=== PATIENT | female | born 1965 | race Caucasian/White ===

== ENCOUNTER 2017-04-15 11:25 | Outpatient (CLI) | payer OTHER | END 2017-04-15 11:26 | disposition home or self-care (01) | LOC: LAB.R 11:25 | PROVIDERS: ATTEND Family Medicine | DX: R31.0 Gross hematuria (principal) | CPT/HCPCS: 87086 ==

== ENCOUNTER 2019-05-26 15:04 | Emergency (ER) | payer OTHER ==
--- NOTE | 2019-05-26 15:49 | ED Physician Documentation ---
PD HPI URI - Stated complaint Stated Complaint: FEVER/N - Chief complaint Chief Complaint: Fever - History obtained from History obtained from: Patient - History of Present Illness Timing - onset: How many days ago (3) Timing duration: Days (3) Timing details: Abrupt onset, Still present, Waxing and waning (He has had nausea with fevers for the last 3 days. She has had some headache when the fevers are higher but that improves with Tylenol. She does feel dehydrated with less oral intake over the last 3 days. She has had soft stool output with some notice of dark color to it yesterday but not as much today. She did not have profuse diarrhea. She denies any dysuria. She has not had any cough. She is feeling general weakness today due to lack of oral intake.) Associated symptoms: Fever, Chills, NVD. No: Nasal congestion, Sore throat, Swollen nodes, Dry cough, Dyspnea Contributing factors: No: Sick contact, Travel, Immunocompromised, COPD / asthma Improves by: Medication (tylenol brings fever down for few hours.) Similar symptoms before: Has not had sx before Recently seen: Not recently seen Review of Systems Constitutional: reports: Fever, Chills, Myalgias Nose: denies: Rhinorrhea / runny nose, Congestion Throat: denies: Sore throat Respiratory: denies: Cough GI: reports: Abdominal Pain, Nausea, Diarrhea. denies: Abdominal Swelling, Vomiting : denies: Dysuria, Frequency Skin: denies: Rash, Lesions Neurologic: reports: Generalized weakness, Headache. denies: Focal weakness, Numbness, Confused, Altered mental status Psychiatric: denies: Depressed, Anxiety PD PAST MEDICAL HISTORY - Past Medical History Cardiovascular: None Respiratory: None GI: Ulcerative colitis - Present Medications Home Medications: Ambulatory Orders Medication Instructions Recorded Confirmed Cephalexin [Keflex] 500 mg PO TID #21 capsule 05/26/19 Metronidazole [Flagyl] 500 mg PO BID #14 tablet 05/26/19 Ondansetron Odt [Zofran] 4 mg TL Q6H PRN #10 tablet 05/26/19 dexAMETHasone [Decadron] 4 mg PO DAILY #5 tablet 05/26/19 - Allergies Allergies/Adverse Reactions: Allergies Allergy/AdvReac Type Severity Reaction Status Date / Time iodine Allergy Unknown Verified 05/26/19 15:19 - Living Situation Living Situation: reports: With spouse/s.o. Living Arrangement: reports: At home - Social History Does the pt smoke?: No Does the pt drink ETOH?: No Does the pt have substance abuse?: No - Family History Family history: reports: Non contributory PD ED PE NORMAL - Vitals Vital signs reviewed: Yes (Tachycardic with normal blood pressure initially but then the blood pressur) - General General: Alert and oriented X 3, No acute distress, Well developed/nourished - HEENT HEENT: Moist mucous membranes, Pharynx benign - Neck Neck: Supple, no meningeal sign, No adenopathy - Cardiac Cardiac: No murmur. No: RRR - Respiratory Respiratory: Clear bilaterally - Abdomen Abdomen: Soft, Non distended, No organomegaly, Other (Tender non-focally in the lower abdomen both left and right without any guarding or percussion tenderness. No hernias are felt.). No: Normal bowel sounds (diminished) - Female Female : Deferred - Rectal Rectal: Other (Soft to slightly watery stool in the vault which is brown with speckled spots of guaiac positive.) - Back Back: No CVA TTP - Derm Derm: Warm and dry. No: Normal color (pale) - Extremities Extremities: No deformity, No tenderness to palpate, Normal ROM s pain, No edema, No calf tenderness / cord - Neuro Neuro: Alert and oriented X 3, No motor deficit, Normal speech Results - Vitals Vitals: Vital Signs - 24 hr 05/26/19 05/26/19 05/26/19 15:15 15:48 16:50 Temperature 39.3 C H Heart Rate 139 H 132 H 125 H Respiratory 20 16 24 Rate Blood Pressure 132/74 H 143/84 H 135/56 H O2 Saturation 94 92 94 05/26/19 05/26/19 05/26/19 17:31 17:56 18:23 Temperature 38.3 C H Heart Rate 120 H 109 H Respiratory 31 H 31 H 20 Rate Blood Pressure 166/87 H 118/63 101/80 O2 Saturation 97 96 97 05/26/19 05/26/19 05/26/19 18:47 19:01 20:25 Temperature 38.1 C H Heart Rate 108 H 112 H 111 H Respiratory 25 H 17 19 Rate Blood Pressure 109/58 L 109/58 L 110/65 O2 Saturation 96 97 97 Oxygen O2 Source Room air - Labs Labs: Laboratory Tests 05/26/19 05/26/19 05/26/19 15:30 15:30 15:30 WBC 8.9 RBC 5.20 Hgb 14.4 Hct 43.3 MCV 83.3 MCH 27.7 MCHC 33.3 RDW 13.8 Plt Count 103 L MPV 12.0 H Neut # (Auto) Not Reportable Lymph # (Auto) Not Reportable [place] # (Auto) Not Reportable Eos # (Auto) Not Reportable Baso # (Auto) Not Reportable Absolute Nucleated RBC Not Reportable Total Counted 100 Band Neuts % (Manual) 16 H Reactive Lymphs % (Man) 1 Abnorm Lymph % (Manual) 0 Nucleated RBC % Not Reportable Neutrophils # (Manual) 6.9 H Lymphocytes # (Manual) 0.9 L Monocytes # (Manual) 1.2 H Eosinophils # (Manual) 0.0 Basophils # (Manual) 0.0 Differential Comment MANUAL DIFFERENTIAL Platelet Estimate DECREASED (<130,000) Platelet Morphology NORMAL APPEARANCE RBC Morph Micro Appear NORMAL APPEARANCE ESR Sodium 132 L Potassium 4.2 Chloride 97 L Carbon Dioxide 25 Anion Gap 10.0 BUN 31 H Creatinine 0.9 Estimated GFR (MDRD) 66 L Glucose 198 H POC Whole Bld Glucose Lactic Acid 1.7 Calcium 9.6 Magnesium 2.6 Total Bilirubin 1.6 H AST 16 ALT 23 Alkaline Phosphatase 51 Total Protein 8.0 Albumin 3.7 Globulin 4.3 H Albumin/Globulin Ratio 0.9 L Lipase 29 Urine Color Urine Clarity Urine pH Ur Specific [place] Urine Protein Urine Glucose (UA) Urine Ketones Urine Occult Blood Urine Nitrite Urine Bilirubin Urine Urobilinogen Ur Leukocyte Esterase Urine RBC Urine WBC Ur Squamous Epith Cells Urine Bacteria Urine Casts Ur Microscopic Review Urine Culture Comments Influenza A (Rapid) Influenza B (Rapid) 05/26/19 05/26/19 05/26/19 15:30 15:39 16:58 WBC RBC Hgb Hct MCV MCH MCHC RDW Plt Count MPV Neut # (Auto) Lymph # (Auto) [place] # (Auto) Eos # (Auto) Baso # (Auto) Absolute Nucleated RBC Total Counted Band Neuts % (Manual) Reactive Lymphs % (Man) Abnorm Lymph % (Manual) Nucleated RBC % Neutrophils # (Manual) Lymphocytes # (Manual) Monocytes # (Manual) Eosinophils # (Manual) Basophils # (Manual) Differential Comment Platelet Estimate Platelet Morphology RBC Morph Micro Appear ESR 42 H Sodium Potassium Chloride Carbon Dioxide Anion Gap BUN Creatinine Estimated GFR (MDRD) Glucose POC Whole Bld Glucose 194 H Lactic Acid Calcium Magnesium Total Bilirubin AST ALT Alkaline Phosphatase Total Protein Albumin Globulin Albumin/Globulin Ratio Lipase Urine Color Urine Clarity Urine pH Ur Specific [place] Urine Protein Urine Glucose (UA) Urine Ketones Urine Occult Blood Urine Nitrite Urine Bilirubin Urine Urobilinogen Ur Leukocyte Esterase Urine RBC Urine WBC Ur Squamous Epith Cells Urine Bacteria Urine Casts Ur Microscopic Review Urine Culture Comments Influenza A (Rapid) Negative Influenza B (Rapid) Negative 05/26/19 18:14 WBC RBC Hgb Hct MCV MCH MCHC RDW Plt Count MPV Neut # (Auto) Lymph # (Auto) [place] # (Auto) Eos # (Auto) Baso # (Auto) Absolute Nucleated RBC Total Counted Band Neuts % (Manual) Reactive Lymphs % (Man) Abnorm Lymph % (Manual) Nucleated RBC % Neutrophils # (Manual) Lymphocytes # (Manual) Monocytes # (Manual) Eosinophils # (Manual) Basophils # (Manual) Differential Comment Platelet Estimate Platelet Morphology RBC Morph Micro Appear ESR Sodium Potassium Chloride Carbon Dioxide Anion Gap BUN Creatinine Estimated GFR (MDRD) Glucose POC Whole Bld Glucose Lactic Acid Calcium Magnesium Total Bilirubin AST ALT Alkaline Phosphatase Total Protein Albumin Globulin Albumin/Globulin Ratio Lipase Urine Color YELLOW Urine Clarity CLEAR Urine pH 6.0 Ur Specific [place] 1.025 Urine Protein 100 H Urine Glucose (UA) >=1000 H Urine Ketones 40 H Urine Occult Blood MODERATE H Urine Nitrite NEGATIVE Urine Bilirubin NEGATIVE Urine Urobilinogen 0.2 (NORMAL) Ur Leukocyte Esterase NEGATIVE Urine RBC 0-5 Urine WBC 0-3 Ur Squamous Epith Cells RARE Squamous Urine Bacteria None Seen Urine Casts 0-2 Granular Casts Ur Microscopic Review INDICATED Urine Culture Comments NOT INDICATED Influenza A (Rapid) Influenza B (Rapid) PD MEDICAL DECISION MAKING - ED course Complexity details: re-evaluated patient (The patient states her blood pressures typically low at about 100 systolic. However I do not believe she is typically tachycardic. The patient is feeling improved with IV fluids and medications. I reviewed the findings with her of normal white count and lactate and no acute abnormality on the CT scan. However however I still feel she is ill with the degree of fever and tachycardia and no good reliable identified source. She has had some lower abdominal pain and diarrhea and has a history of ulcerative colitis so my presumption is she is having some infectious colitis just not visible on CT scan. We will treat her for that. The patient and her would very much like to go home and are comfortable with her still being tachycardic. They will return if she seems to be worsening but again would prefer to try going home.), considered differential (She has tachycardia fever and appears ill. There is no head cold type symptoms. She has had some lower abdominal crampy pain and loose stools with nausea. Consider intra-abdominal process most likely with possibilities of the appendix, diverticulitis, ulcerative colitis infection urinary tract infection or other process.), d/w patient Departure - Departure Disposition: Home, Self Care Clinical Impression: Lower abdominal pain, Colitis Fever Qualifiers: Fever type: unspecified Qualified Code(s): R50.9 - Fever, unspecified Condition: Stable Record reviewed to determine appropriate education?: Yes Instructions: ED Colitis Ulcerative Follow-Up: Alma Delia Yee PA-C [Primary Care Provider] - Prescriptions: Cephalexin [Keflex] 500 mg PO TID #21 capsule dexAMETHasone [Decadron] 4 mg PO DAILY #5 tablet Metronidazole [Flagyl] 500 mg PO BID #14 tablet Ondansetron Odt [Zofran] 4 mg TL Q6H PRN #10 tablet PRN Reason: Nausea / Vomiting Comments: I think you are likely having some inflammation and infection of the colon related to your ulcerative colitis. The CT scan did not show an acute focus of infection (normal appendix no diverticulitis, no abscess). No other obvious source of infection at this time. Stay well-hydrated. Use antibiotic cephalexin and metronidazole as directed for a week for presumed colitis. Ondansetron if needed for nausea. Decadron for inflammation. Recheck if not improving well over the next couple of days. Follow-up with your primary care in the next couple of days, call for an appointment. Have a low threshold for returning to the hospital if not feeling better or if feeling worse as we could have you in the hospital overnight to treat it further. Discharge Date/Time: 05/26/19 20:26
[2019-05-26] MEDS ORDERED: SODIUM CHLORIDE 0.9% 1,000 ML IV ONE ×3 (16:16→18:19)
[2019-05-26] MEDS ORDERED: ONDANSETRON 4 MG/2 ML VIAL IVP STA (16:16)
[2019-05-26] MEDS ORDERED: MORPHINE 10 MG/ML VIAL IVP STA (16:16)
[2019-05-26] MEDS ORDERED: FAMOTIDINE 20 MG/2 ML VIAL IVP STA (16:16)
[2019-05-26] MEDS ORDERED: cefTRIAXone 1 GM VIAL IVP STA (16:17)
[2019-05-26] MEDS ORDERED: metroNIDAZOLE 500 MG/100 ML 500 MG/100 ML BAG IV ONE (16:17)
[2019-05-26 16:28] LABS: BASOPHILS % (AUTO) 0.2 %; EOSINOPHILS % (AUTO) 1.6 %; HGB - HEMOGLOBIN 14.4 g/dL (12.0-16.0); LYMPHOCYTES % (AUTO) 11.7 %; MEAN CORPUSCULAR HEMOGLOBIN 27.7 pg (27.0-31.0); MEAN CORPUSCULAR HGB CONC 33.3 g/dL (32.0-36.0); MEAN CORPUSCULAR VOLUME 83.3 fL (81.0-99.0); MONOCYTES % (AUTO) 9.9 %; NEUTROPHILS % (AUTO) 76.3 %; PLT - PLATELET COUNT 103 10^3/uL (130-450); RED CELL DISTRIBUTION WIDTH 13.8 % (12.0-15.0); WHITE BLOOD COUNT 8.9 x10^3/uL (4.8-10.8)
[2019-05-26 16:36] LABS: ALBUMIN 3.7 g/dL (3.2-5.5); ALBUMIN/GLOBULIN RATIO 0.9 (1.0-2.2); BILIRUBIN,TOTAL 1.6 mg/dL (0.2-1.0); CALCIUM 9.6 mg/dL (8.5-10.3); CREATININE 0.9 mg/dL (0.4-1.0); MAGNESIUM 2.6 mg/dL (1.7-2.8)
[2019-05-26 16:44] LABS: ABNORMAL LYMPHS % (MANUAL) 0 %
[2019-05-26 16:46] LABS: BAND NEUTROPHILS % (MANUAL) 16 %; DIFFERENTIAL COMMENT MANUAL DIFFERENTIAL; LYMPHOCYTES # (MANUAL) 0.9 10^3/uL (1.5-3.5); LYMPHOCYTES % (MANUAL) 9 %; MONOCYTES # (MANUAL) 1.2 10^3/uL (0.0-1.0); PLATELET ESTIMATE, MANUAL DECREASED (<130,000) (NORMAL); PLATELET MORPHOLOGY NORMAL APPEARANCE (NORMAL); RBC MORPHOLOGY (MULTIPLE) NORMAL APPEARANCE (NORMAL)
[2019-05-26] MEDS ORDERED: ACETAMINOPHEN 1,000 MG/100 ML 100 ML IV STA (17:03)
[2019-05-26 18:37] LABS: GLUCOSE, URINE (UA) >=1000 mg/dL (NEGATIVE); KETONES,URINE (UA) 40 mg/dL (NEGATIVE); LEUKOCYTE ESTERASE, URINE NEGATIVE (NEGATIVE); NITRITE,URINE NEGATIVE (NEGATIVE); OCCULT BLOOD,URINE MODERATE (NEGATIVE); PROTEIN,URINE 100 mg/dL (NEGATIVE); UROBILINOGEN,URINE 0.2 (NORMAL) E.U./dL (NORMAL)
[2019-05-26 18:50] LABS: BILIRUBIN,URINE NEGATIVE (NEGATIVE); CLARITY,URINE CLEAR (CLEAR); ICTOTEST,URINE NEGATIVE
[2019-05-26 18:52] LABS: BACTERIA,URINE None Seen /HPF (None Seen); CASTS, URINE 0-2 Granular Casts /LPF; RBC,URINE 0-5 /HPF (0-5); SQUAMOUS EPITHELIAL CELL,UR RARE Squamous (<= Few)
--- NOTE | 2019-05-26 19:23 | CT Report ---
Reason: lower abd pain and fever Procedure Date: 05/26/2019 Accession Number: [id number] / [id number] Procedure: CT - Abdomen/Pelvis WO CPT Code: FULL RESULT: EXAM: CT ABDOMEN AND PELVIS (WITHOUT CONTRAST ) EXAM DATE: 05/26/2019 04:32 PM. CLINICAL HISTORY: Lower abd pain and fever. COMPARISONS: None. TECHNIQUE: Routine axial helical CT imaging was performed through the abdomen and pelvis without IV contrast. Reconstructions: Coronal and sagittal. In accordance with CT protocol optimization, one or more of the following dose reduction techniques were utilized for this exam: automated exposure control, adjustment of mA and/or KV based on patient size, or use of iterative reconstructive technique. FINDINGS: Lung Bases: Unremarkable. Right Kidney/Ureter: No stones, hydronephrosis, or hydroureter. No perinephric fat stranding. Left Kidney/Ureter: No stones, hydronephrosis, or hydroureter. No perinephric fat stranding. Other Solid Organs: Noncontrast images of the solid organs are grossly unremarkable. Gallbladder/Bile Ducts: Unremarkable. Peritoneal Cavity: Extremely redundant colon that is otherwise unremarkable. No evidence of diverticulitis. The cecum and normal appendix are in the anterior midline. No evidence of appendicitis. Pelvic Organs: No bladder stones or wall thickening. Noncontrast images of the visualized intra- pelvic organs are unremarkable. There is a 3 cm maximal diameter fat-containing left inguinal hernia. Vasculature: Unremarkable. Other: None. IMPRESSION: 1. No acute abnormality. 2. No evidence of nephrolithiasis, ureteral obstruction, diverticulitis or appendicitis. 3. Incidental finding of small fat-containing left inguinal hernia. RADIA
[2019-05-26] MEDS ORDERED: DEXAMETHASONE 10 MG/ML VIAL IVP STA (19:52)
[2019-05-26 20:26] VITALS: BP 110/65
== END 2019-05-26 20:26 | disposition home or self-care (01) ==
LOC: ED 15:04
DX: K52.9 Noninfective gastroenteritis and colitis, unspecified (principal); Z87.19 Personal history of other diseases of the digestive system; R00.0 Tachycardia, unspecified
CPT/HCPCS: 36415; 74176; 80053; 81001; 83605; 83690; 83735; 85025; 85651; 87040; 87275; 87276; 99284; J0131; 81003; 87086

== ENCOUNTER 2019-07-27 08:18 | Day surgery (SDC) | payer OTHER ==
[2019-07-27] MEDS ORDERED: MIDAZOLAM 2 MG/2 ML VIAL IVP ONE (08:19)
[2019-07-27] MEDS ORDERED: fentaNYL 100 MCG/2 ML VIAL IVP ONE (08:19)
[2019-07-27] MEDS ORDERED: LIDOCAINE 2% 10 ML MDV SUBQ ONE (08:19)
[2019-07-27] MEDS ORDERED: PROPOFOL 200 MG/20 ML VIAL IVP ONE (08:19)
[2019-07-27] MEDS ORDERED: LACTATED RINGERS 1,000 ML IV ONE (08:31)
[2019-07-27 08:52] LABS: HCG UR QUAL NEGATIVE
--- NOTE | 2019-07-27 08:59 | ANESTHESIA ---
Pre-Anesthesia VS, & Labs - Diagnosis Left inguinal hernia - Procedure Left inguinal hernia repair Vital Signs: Temp Pulse Resp BP Pulse Ox 36.0 C L 76 16 131/81 H 97 07/27/19 08:31 07/27/19 08:31 07/27/19 08:31 07/27/19 08:31 07/27/19 08:31 Height 5 ft 2 in Weight (kg) 84.1 kg Body Mass Index 33.8 - NPO >8 hours, Other - Is Patient ?: No - Lab Results Lab results reviewed: Yes Home Medications and Allergies Home Medications: Ambulatory Orders Aspirin [Aspirin EC] 81 mg PO DAILY 07/21/19 Empagliflozin [Jardiance] 25 mg PO DAILY 07/21/19 Linagliptin/Metformin HCl [Jentadueto 2.5 mg-1000 mg Tab] 1 each PO BID 07/21/19 Rosuvastatin Calcium 10 mg PO QPM 07/21/19 Aspirin [Aspirin EC] 81 mg PO DAILY 07/21/19 Empagliflozin [Jardiance] 25 mg PO DAILY 07/21/19 Linagliptin/Metformin HCl [Jentadueto 2.5 mg-1000 mg Tab] 1 each PO BID 07/21/19 Rosuvastatin Calcium 10 mg PO QPM 07/21/19 Allergies/Adverse Reactions: Allergies Allergy/AdvReac Type Severity Reaction Status Date / Time iodine Allergy Anaphylaxis Verified 07/21/19 09:24 fresh water fish Allergy Anaphylaxis Uncoded 07/21/19 09:24 seafood Allergy Anaphylaxis Uncoded 07/21/19 09:24 Anes History & Medical History - Anesthetic History Anesthesia Complications: reports: No previous complications Family history of Anesthesia Complications: Denies Family history of Malignant Hyperthermia: Denies - Medical History Cardiovascular: reports: High cholesterol Pulmonary: reports: None Gastrointestinal: reports: Ulcerative colitis, Crohn's disease Urinary: reports: None Neuro: reports: None Musculoskeletal: reports: None Endocrine/Autoimmune: reports: Type 2 diabetes Blood Disorders: reports: None Skin: reports: None Smoking Status: Former smoker Psychosocial: reports: No issues indicated - Surgical History General: Colonoscopy Eyes Ears Nose Throat (EENT): Tonsil/Adenoidectomy Exam General: Alert, Oriented x3, Cooperative Dental: Other (Has 5 studs ready for implants) Mouth Opening: Greater than 4 Fingerbreadths Neck Mobility: Normal Mallampati classification: I Thyromental Distance: greater than 6 cm Respiratory: Lungs clear Cardiovascular: Other (Irregular rate) Mental/Cognitive Status: Alert/Oriented X3 Cognitive Status: Within normal limits Plan Anesthesia Type: General Consent for Procedure(s) Verified and Reviewed: Yes Code Status: Attempt Resuscitation ASA classification: 2-Mild systemic disease Is this case an emergency?: No
[2019-07-27] MEDS ORDERED: ceFAZolin 1 GM VIAL ONE (09:44)
[2019-07-27] MEDS ORDERED: LIDOCAINE 1%-EPI 1:100000 20 ML MDV ONE (09:45)
[2019-07-27] MEDS ORDERED: BUPIVACAINE 0.5% PF 30 ML VIAL ONE (09:45)
[2019-07-27] MEDS ORDERED: LIDOCAINE 1%-EPI 1:100000 30 ML MDV SUBQ ONE (10:38)
[2019-07-27] MEDS ORDERED: ceFAZolin 1 GM VIAL IR ONE (10:38)
[2019-07-27] MEDS ORDERED: BUPIVACAINE 0.5% PF 30 ML VIAL INFIL ONE ×2 (10:39)
--- NOTE | 2019-07-27 11:06 | OPERATIVE REPORT ---
Operative Report - General Procedure Date: 07/27/19 Planned Procedure: Left Inguinal Hernia Repair Pre-Op Diagnosis: Left Inguinal Hernia Procedure Performed: Left Inguinal Hernia Repair Post Op Diagnosis: Left Inguinal Hernia - Procedure Note Primary Surgeon: Jace Anesthesia Provider: YOKO Marroquin Anesthesia Technique: General LMA Estimated Blood Loss (mL): 10 Findings: Moderate indirect left inguinal hernia Complications: None apparent - Other Other Information/Narrative: After obtaining informed consent, the patient is brought to the operating room and placed in the supine position on the operating table. Following successful induction of general anesthesia, appropriate padding of all bony prominences, and placement of appropriate monitors, the left abdomen and groin were prepped and draped in the standard surgical fashion. A timeout was held per scope protocol. All elements of the surgical safety checklist were followed before, during, and after the procedure. We began the procedure by infiltrating a mixture of local anesthetics medial to the anterior superior iliac spine on the left to create an ileal inguinal nerve block. Once this was completed, a site was chosen for in the incision just superior and lateral to the left side of the pubic tubercle. This area was infiltrated with local anesthetic and incision was created here and carried down through the skin and subcutaneous tissue. Letha's fascia was divided revealing the external oblique aponeurosis. The aponeurosis was opened in the direction of its fibers revealing the inguinal canal. The contents of the inguinal canal, specifically the ilioinguinal nerve and the round ligament were identified. The round ligament was divided and to the ilioinguinal nerve clipped proximally and distally and divided as well. The tip of the nerve was then placed inside the muscle. The wound was then checked for hemostasis and irrigated with warm saline solution. We elected to repair the indirect defect using a medium sized piece of Prolene hernia system mesh. This was dipped in Ancef containing solution and deployed into the defect. The posterior leaflet was straightened and flattened in the preperitoneal space. The anterior leaflet was then sewn to the pubic tubercle medially using Vicryl suture. It was sewn to the shelving edge of the inguinal ligament inferiorly superiorly it was shown it was sewn to the transversalis fascia and laterally it was tucked under the external oblique aponeurosis. The wound was then checked for hemostasis. The incision was irrigated with warm saline solution containing Ancef once again. The external oblique aponeurosis was closed with a running locking Vicryl suture Letha's fascia was closed and Monocryl stitches were placed in the skin. All sponge, needle, instrument counts were correct at the conclusion of the case. The patient was allowed to awaken from anesthesia without difficulty and taken to the postanesthesia care unit in good condition.
[2019-07-27] MEDS ORDERED: ONDANSETRON 4 MG/2 ML VIAL IVP PRN (11:10)
[2019-07-27] MEDS ORDERED: oxyCODONE 5 MG TABLET PO PRN (11:10)
[2019-07-27] MEDS ORDERED: ACETAMINOPHEN 325 MG TABLET PO PRN (11:10)
[2019-07-27] MEDS ORDERED: IBUPROFEN 600 MG TABLET PO PRN (11:10)
[2019-07-27 12:41] VITALS: BP 109/62
== END 2019-07-27 08:19 | disposition home or self-care (01) ==
LOC: SDS 08:18
PROVIDERS: ATTEND Surgery
PROC: 0YU60JZ Supplement Left Inguinal Region with Synthetic Substitute, Open Approach (ICD-10-PCS; principal; 2019-07-27 09:30)
DX: K40.90 Unilateral inguinal hernia, without obstruction or gangrene, not specified as recurrent (principal); K51.90 Ulcerative colitis, unspecified, without complications; E78.5 Hyperlipidemia, unspecified; E11.9 Type 2 diabetes mellitus without complications; L40.9 Psoriasis, unspecified; Z79.82 Long term (current) use of aspirin; Z79.84 Long term (current) use of oral hypoglycemic drugs
CPT/HCPCS: 49505; 81025; J7120

== ENCOUNTER 2021-02-16 08:00 | Outpatient (CLI) | payer OTHER ==
[2021-02-16 18:19] LABS: CREATININE,URINE 147.2 mg/dL; MICROALBUM/CREATININE RATIO,UR 10.9 ug/mg (<30.0); MICROALBUMIN,URINE 1.6 mg/dL (0-300.0)
[2021-02-16 18:37] LABS: ALBUMIN 4.9 g/dL (3.2-5.5); ALKALINE PHOSPHATASE 73 IU/L (42-121); ALT ALANINE AMINOTRANSFERASE 32 IU/L (10-60); AST ASPARTATE AMINOTRANSFERASE 22 IU/L (10-42); BILIRUBIN,TOTAL 1.4 mg/dL (0.2-1.0); BUN - BLOOD UREA NITROGEN 16 mg/dL (6-20); CALCIUM 9.6 mg/dL (8.5-10.3); CARBON DIOXIDE - CO2 26 mmol/L (21-32); CHLORIDE 103 mmol/L (101-111); CHOL/HDL RATIO 2.9 (<4.4); CHOLESTEROL 178 mg/dL; CREATININE 0.9 mg/dL (0.4-1.0); GFR - MDRD 65 (>89); GLUCOSE 164 mg/dL (70-100); HDL CHOLESTEROL 62 mg/dL; LDL CHOLESTEROL,CALCULATED 85 mg/dL; LDL/HDL RATIO 1.4 (<4.4); POTASSIUM 4.5 mmol/L (3.5-5.0); SODIUM 139 mmol/L (135-145); TOTAL PROTEIN 7.4 g/dL (6.7-8.2); TRIGLYCERIDES 153 mg/dL; VLDL CHOLESTEROL 31 mg/dL
[2021-02-16 20:38] LABS: ESTIMATED AVERAGE GLUCOSE 174 mg/dL (70-100); HEMOGLOBIN A1c% 7.7 % (4.27-6.07)
== END 2021-02-16 23:59 | disposition home or self-care (01) ==
LOC: LAB.WCP 08:00
PROVIDERS: ATTEND Physician Assistant Medical
DX: E11.9 Type 2 diabetes mellitus without complications (principal)
CPT/HCPCS: 36415; 80053; 80061; 82043; 82570; 83036; 83721

== ENCOUNTER 2021-03-13 08:00 | Outpatient (CLI) | payer OTHER ==
[2021-03-14 20:12] LABS: BACTERIAL VAGINOSIS DNA NEGATIVE (NEGATIVE); CANDIDA GLABRATA DNA NEGATIVE (NEGATIVE); CANDIDA GROUP DNA POSITIVE (NEGATIVE); CANDIDA KRUSEI DNA NEGATIVE (NEGATIVE); TRICHOMONAS VAGINALIS DNA NEGATIVE (NEGATIVE)
== END 2021-03-13 23:59 ==
LOC: LAB.N 08:00
PROVIDERS: ATTEND Physician Assistant Medical
DX: B37.9 Candidiasis, unspecified (principal)
CPT/HCPCS: 87661; 87801